=== PATIENT | male | born 1950 | race Caucasian/White ===

== ENCOUNTER 2023-11-15 08:01 | Day surgery (SDC) | payer MEDICARE, BC ==
[~2023-11-15] VITALS: Ht 182.9 cm; Wt 113.4 kg
[~2023-11-15 08:01] MED LIST: ASPIRIN EC81 MG PO; ATENOLOL50 MG PO; COZAAR50 MG PO; EMERGEN-C 500500 MG PO; FLEXI JOINT TA1 EACH PO; LIPITOR20 MG; NORVASC10 MG PO; OSTERA TABLET1 EACH PO; OXYBUTYNIN CHLO10 MG PO; ZYLOPRIM100 MG PO; [UNRECOGNIZED DRUG - OTHER] PO
--- NOTE | 2023-11-15 08:20 | NUR ---
LE 0810: PT ARRIVES TO AMBULATORY. HE IS PUT INTO ROOM 12 FOR CYSTOSCOPY WITH BOTOX INJECTION. PT REPORTS THAT HE NEEDS TO URINATE. HE IS GIVEN A SAMPLE CUP TO COLLECT A CC URINE. SAMPLE. LE 0817: PT IS UNABLE TO COLLECT SAMPLE AT THIS TIME.
--- NOTE | 2023-11-15 08:29 | NUR ---
LE 0825: 16FR HINTON CATHETER PLACED USING STERILE TECHNIQUE WITH DARK YELLOW URINE RETURN. PT TOLERATES THE INSERTION WELL. LE 0830: URINE SAMPLE COLLECTED AND TAKEN TO LAB.
--- NOTE | 2023-11-15 08:38 | NUR ---
LE 0837: LIDOCAINE 4% 100MLS INSTILLED INTO BLADDER.
[2023-11-15 08:43] LABS: BILIRUBIN, URINE NEGATIVE (negative); BLOOD/HGB, URINE LARGE (Negative); KETONE, URINE NEGATIVE (Negative); LEUK ESTERASE, URINE TRACE (negative); NITRITE, URINE NEGATIVE (negative)
[2023-11-15 08:50] LABS: RED BLOOD CELLS, URINE 21-40 /hpf (0-5)
[2023-11-15 08:51] LABS: BACTERIA, URINE RARE /hpf (negative); CASTS, URINE NONE SEEN \\lpf; COLLECTION TYPE, URINE CLEAN CATCH; CRYSTALS, URINE NONE SEEN (0-1+); EPITHELIAL CELLS, URINE 0 /lpf (0-1+)
[2023-11-15 08:54] LABS: REFLEX CULTURE, URINE No (No)
--- NOTE | 2023-11-15 14:36 | OR ---
[facility] [address], [place] [address] Signed DATE OF OPERATION: 11/15/2023 SURGEON: Chadwick Chávez MD PREOPERATIVE DIAGNOSES: 1. Severe overactive bladder with detrusor instability. 2. Radiation cystitis. POSTOPERATIVE DIAGNOSES: 1. Severe overactive bladder with detrusor instability. 2. Radiation cystitis. NAME OF PROCEDURES: Diagnostic cystoscopy with Botox bladder injection of 100 units. ANESTHESIA: 100 mL of 4% liquid lidocaine. SPECIMENS: None. DRAINS: None. INDICATIONS FOR PROCEDURE: Mr. Corea is a very pleasant 73-year-old gentleman who is well-known to me. He has a history of prostate cancer and underwent radiation therapy for treatment. Unfortunately since that time, he is experiencing fairly significant symptoms of radiation cystitis along with random bouts of urine leakage. He has tried multiple anticholinergic medications in the past without any improvement in his symptoms. He presents today to undergo his first cystoscopy with Botox bladder injection of 100 units. OPERATIVE FINDINGS: 1. A total of 100 units of botulinum toxin was injected into the patient's bladder today via 0.5 mL aliquots. Injections were mainly placed on the posterior and bilateral samson of the bladder, avoiding the dome and trigone areas. 2. Diagnostic cystoscopy reveals no evidence of any suspicious masses or lesions or stones. However, there are well-defined areas of bladder wall vascularity and some minor bullous edema that just appear to be very consistent with radiation cystitis. There is a 1 cm area of necrotic tissue present near the bladder neck. This seems to be Electronically Signed By: CHADWICK CHÁVEZ MD 11/15/23 1436 PATIENT NAME: TAYLOR COREA OPERATIVE REPORT DATE OF : 50 REPORT #: [id number] PHYSICIAN: CHADWICK CHÁVEZ MD PCP: ANTHONY ORDOÑEZ MD REPORT IS CONFIDENTIAL AND NOT TO BE RELEASED WITHOUT AUTHORIZATION [facility] [address], [place] [address] Signed in the process of sloughing off the bladder wall. Ureteroscopy reveals very pale tissue in the prostatic urethra consistent with tissue changes secondary to prostate radiation. PROCEDURE IN DETAIL: After informed consent was obtained, patient was taken back to the operating room. He was transferred from the [facility] to the operating room table and he was placed in the dorsal lithotomy position. His genitalia prepped and draped in standard sterile fashion. Prior to this 100 mL of liquid lidocaine were instilled into the patient's bladder for a total of 30 minutes to be used as local anesthesia. Prior to arriving in the operating room, the patient's bladder was drained of the liquid lidocaine and the catheter was removed. Now that his genitalia was prepped and draped, I inserted a flexible cystoscope through his urethra into his bladder under direct visualization. Panendoscopic views of bladder were then obtained. Please see above findings. I then passed a flexible needle through the scope and into the patient's bladder. The tiny needle itself was protracted to 4 mm of length. I then initiated injection of the botulinum toxin into the patient's bladder and 0.5 mL aliquots for a total of 11 mL of reconstituted Botox injected into the bladder. There was very minimal bleeding associated with the injections by the end of the procedure. The procedure was then straight cathed using a 16-Japanese catheter and his bladder was drained completely. The procedure was then terminated. The patient tolerated the procedure well without any complication. He will now be transferred to the postanesthesia care unit in stable condition. DISPOSITION: I called [facility] and spoke with Phill, the pharmacist, and the patient was authorized to receive Cipro 500 mg one tablet p.o. b.i.d. for a total of five days along with Pyridium 200 mg one tablets p.o. up to three times daily as needed for dysuria. He will be scheduled to return to clinic to see the Urology nurse in three weeks for a postvoid residual and urine check. He will see me in 2-3 months for his first post Botox evaluation. MD MOMO Garcia/ROSARIOL /[id number] Electronically Signed By: CHADWICK CHÁVEZ MD 11/15/23 1436 PATIENT NAME: TAYLOR COREA OPERATIVE REPORT DATE OF : 50 REPORT #: [id number] PHYSICIAN: CHADWICK CHÁVEZ MD PCP: ANTHONY ORDOÑEZ MD REPORT IS CONFIDENTIAL AND NOT TO BE RELEASED WITHOUT AUTHORIZATION [address] [address] Signed Copies: ~ Electronically Signed By: CHADWICK CHÁVEZ MD 11/15/23 1436 PATIENT NAME: TAYLOR COREA OPERATIVE REPORT DATE OF : 50 REPORT #: [id number] PHYSICIAN: CHADWICK CHÁVEZ MD PCP: ANTHONY ORDOÑEZ MD REPORT IS CONFIDENTIAL AND NOT TO BE RELEASED WITHOUT AUTHORIZATION
== END 2023-11-15 09:55 | disposition home or self-care (01) ==
LOC: OPS 08:01 → DS 08:05 → OPS 09:00 → DS 11:00 → OPS 11-29 11:00
PROVIDERS: ATTEND Urology
PROC: 3E0K8GC Introduction of Other Therapeutic Substance into Genitourinary Tract, Via Natural or Artificial Opening Endoscopic (ICD-10-PCS; principal; 2023-11-15 09:00)
DX: N32.81 Overactive bladder (principal); N32.89 Other specified disorders of bladder; N30.40 Irradiation cystitis without hematuria; C61 Malignant neoplasm of prostate; I10 Essential (primary) hypertension; E11.9 Type 2 diabetes mellitus without complications; E78.5 Hyperlipidemia, unspecified; Z88.8 Allergy status to other drugs, medicaments and biological substances; Z79.82 Long term (current) use of aspirin; Z79.899 Other long term (current) drug therapy
CPT/HCPCS: 51700; 52287; 81001; J0585